=== PATIENT | male | born 1975 | race Caucasian/White ===

== ENCOUNTER 2019-11-25 09:12 | Day surgery (SDC) | payer BC, SELFPAY ==
[2019-11-25 09:49] LABS: #Eosinphils 0.1 thou/uL (0.0-0.7); #Lymphocytes 2.1 thou/uL (1.20-3.40); #Monocytes 1.1 thou/uL (0.11-0.59); #Neutrophils 12.1 thou/uL (1.40-6.50); %Eosinophils 0.4 % (0.0-10.0); %Lymphocytes 13.7 % (21.0-51.0); %Monocytes 7.1 % (0.0-10.0); %Neutrophils 78.8 % (42.0-75.0); Hemoglobin 15.2 g/dL (14.0-18.0); Mean Corpuscular HGB CONC 32.9 g/dL (32.0-36.0); Mean Corpuscular Hemoglobin 27.7 pg (27.0-31.0); Mean Corpuscular Volume 84.3 fL (78.0-98.0); Mean Platelet Volume 8.1 fL (7.4-10.4); Platelet Count 222 thou/uL (130-400); RBC Distribution Width 11.4 % (11.5-14.5); Red Blood Cell (RBC) Count 5.49 mill/uL (4.70-6.10); White Blood Cell (WBC) Count 15.4 thou/uL (4.8-10.8)
[2019-11-25 10:10] LABS: ALT (SGPT) 47 U/L (8-55); AST (SGOT) 23 U/L (5-34); Albumin 4.6 g/dL (3.5-5.0); Alkaline Phosphatase 63 U/L (40-110); Anion Gap 13 mmol/L (10-20); BUN (Urea Nitrogen) 11 mg/dL (8.9-20.6); Bilirubin, Total 1.1 mg/dL (0.2-1.2); Calc. Creatinine Clearance 0 mL/min (70-130); Calcium 9.7 mg/dL (7.8-10.44); Carbon Dioxide 29 mmol/L (22-29); Chloride 103 mmol/L (98-107); Estimated GFR-MDRD 77; Globulin 3.2 g/dL (2.4-3.5); Glucose 110 mg/dL (70-105); Lipase 11 U/L (8-78); Potassium 4.4 mmol/L (3.5-5.1); Protein, Total 7.8 g/dL (6.0-8.3); Sodium 141 mmol/L (136-145)
[2019-11-25] MEDS ORDERED: Rocuronium Bromide 10 MG/ML (10ML VIAL) ONE (10:14)
[2019-11-25] MEDS ORDERED: PROPOFOL 200 MG/20 ML VIAL ONE (10:14)
[2019-11-25] MEDS ORDERED: Lidocaine 1% PF 5 ML VIAL ONE (10:14)
[2019-11-25] MEDS ORDERED: ePHEDrine/0.9% NaCl/PF SYRINGE 50 mg/10 ml ONE (10:14)
[2019-11-25] MEDS ORDERED: Glycopyrrolate 0.2 MG/ML 5 ML SYRINGE ONE (10:14)
[2019-11-25 10:29] LABS: Bilirubin Negative (Negative); Blood, Urine Negative (Negative); Clarity Clear (Clear); Glucose, Urine (Dipstick) Normal (Negative); Leukocyte Negative Leu/uL (Negative); Nitrite Negative (Negative); Protein, Urine (Dipstick) 10 mg/dL (Neg-Trace); Urobilinogen Normal mg/dL (Less than 2)
--- NOTE | 2019-11-25 10:30 | CT ---
CT ABDOMEN AND PELVIS WITH IV CONTRAST 11/25/2019 CLINICAL INFORMATION: Right lower quadrant abdominal pain. COMPARISON: None. Technique: Multiple contiguous axial CT images are obtained through the abdomen and pelvis with IV contrast. Cor onal reformatted images are provided. FINDINGS: Lower Chest: within normal limits. Vessels: Abdominal aorta is normal in caliber without evidence of an aortic dissection. Abdomen: Portal vein:Patent Gallbladder: Within normal limits for CT imaging. Liver: within normal limits. Spleen: within normal limits. Pancreas: within normal limits. Adrenals: within normal limits. Kidneys: within normal limits. Bowel: Normal caliber. Appendix: Mildly dilated measuring 10 mm with mild enhancement of the parekh of the appendix. There is periappendiceal inflammatory changes and stranding present. No periappendiceal fluid collection is seen to suggest an abscess. No free intraperitoneal gas is identified. Peritoneum: No ascites or free air; no fluid collection. Mesentery and Retroperitoneum: No enlarged mesenteric or retroperitoneal lymph nodes. Abdominal Wall: Small fat-containing umbilical hernia. Pelvis: Reproductive Organs: No pelvic masses. Pelvis within normal limits. Bladder: Decompressed but grossly normal in appearance. Bones: Degenerative changes in thoracic as well as lumbar spine with suggestion of limbus vertebra in volving the L4 vertebral body. IMPRESSION: 1. Acute appendicitis. 2. Above findings discussed with Lizet, nurse in charge of the patient's care in the emergency dep artment, on 11/25/2019 at 1027 hours.
--- NOTE | 2019-11-25 11:31 | HP ---
HISTORY OF PRESENT ILLNESS: Mr. Espinal is a 44-year-old man, who presented to emergency department this morning with complaint of insidious onset right lower quadrant abdominal pain, which started close to midnight. Pain was described as crampy, 10/10 in the right lower quadrant without any radiation. Pain is associated with some chills, but no fever. He denies any nausea or vomiting. He denies any change in his bowel habits. PAST MEDICAL HISTORY: Pertinent for chronic anxiety. PAST SURGICAL HISTORY: Pertinent for closed reduction of forearm fracture. SOCIAL HISTORY: He is , lives at home with his . He is employed, doing manual labor at a job place. He denies any cigarette smoking, ethanol, or illicit drug abuse. PREHOSPITAL MEDICATIONS: Includes some anti-anxiety medication, which specifically he does not recall. ALLERGIES: THE PATIENT DENIES ANY KNOWN DRUG ALLERGIES. REVIEW OF SYSTEMS: Ten-point review of systems is essentially unremarkable except as stated in past medical history and chief complaint. PHYSICAL EXAMINATION: GENERAL: This reveals a 44-year-old normally developed man, who is otherwise coherent, interactive, and appears stated age. The patient is alert and oriented x3, appears to be in no acute distress at time of my evaluation. VITAL SIGNS: Include blood pressure 133/80, pulse is 81, respiratory rate is 18, temperature is 99.8 degrees Fahrenheit, and oxygen saturation is 96% on room air. HEENT: Reveals normocephalic and atraumatic. The pupils are equal, round, reactive to light and accommodation. Extraocular muscles are intact bilaterally. No scleral icterus is present. Oral mucosa is pink and moist. No lesions are noted. HEART: Reveals regular rate and rhythm. No murmurs or gallops auscultated. LUNGS: Clear to auscultation bilaterally. Breathing, regular and nonlabored. ABDOMEN: Soft with right lower quadrant tenderness to palpation. He has a positive Rovsing sign. Liver and spleen nonpalpable below costal margin. EXTREMITIES: Reveal 2+ radial and pedal pulses bilaterally. No ankle edema is present. NEUROLOGIC: Reveals no focal deficits present. LABORATORY FINDINGS: Includes a CBC with 15,400 white blood cells, hemoglobin and hematocrit 15.2 and 46.3 respectively, and platelet count is 222,000. Metabolic profile; sodium 141, potassium is 4.4, chloride is 103, bicarb 29, BUN 11, creatinine is 1.06, glucose 110, total bilirubin is 1.1, AST and ALT are 23 and 47 respectively. Serum lipase is normal at 11. A personally reviewed CT scan of the abdomen and pelvis, which is remarkable for dilated appendix with periappendiceal fat stranding. IMPRESSION: Acute appendicitis. RECOMMENDATIONS: Laparoscopic appendectomy. The above findings and recommendations have been discussed with the patient and family at bedside. I have informed him of the risks and benefits of the proposed surgery to include, but not limited to bleeding, infection, injury to bowel or surrounding structures. The patient indicates understanding information given. I have answered his questions. The patient is going to consent for this admission and surgical intervention. Job ID: [id number]
[2019-11-25] MEDS ORDERED: Bupivacaine PF 0.5% 30 ML VIAL ONE (12:56)
[2019-11-25] MEDS ORDERED: Lidocaine 1% w/Epinephrine 1:100K 20 ML VIAL ONE (12:56)
[2019-11-25] MEDS ORDERED: Fentanyl 250 MCG/5 ML VIAL ONE (13:03)
[2019-11-25] MEDS ORDERED: Midazolam HCl 2 mg/2 ml Vial ONE (13:03)
[2019-11-25] MEDS ORDERED: Piperacillin/Tazobactam 3.375 GM VIAL ONE (13:21)
[2019-11-25] MEDS ORDERED: Sodium Chloride 0.9% 100 ML ONE (13:22)
[2019-11-25] MEDS ORDERED: Iopamidol-370 76% 500 ML 1 ML ONE (13:27)
--- NOTE | 2019-11-25 15:18 | OP ---
DATE OF PROCEDURE: 11/25/2019 PREOPERATIVE DIAGNOSIS: Acute appendicitis. POSTOPERATIVE DIAGNOSIS: Acute appendicitis. OPERATION PERFORMED: Laparoscopic appendectomy. ANESTHESIA: General endotracheal. ESTIMATED BLOOD LOSS: 10 mL. FLUIDS GIVEN: 1000 mL crystalloids. COUNTS: Sponge and instrument counts were verified as correct x2. COMPLICATIONS: None apparent at the time of operation. INDICATIONS FOR OPERATION: This is a 44-year-old man, who presented with insidious onset of periumbilical abdominal pain, which settled in the right lower quadrant. Clinical radiographic examination was consistent with acute appendicitis, for which the patient was brought to the operating room for appendectomy. Findings are consistent with dilated suppurative retrocecal appendix with no evidence of perforation. DESCRIPTION OF PROCEDURE: Informed consent was obtained from the patient, who was brought to the operating room and placed in supine position. Following general anesthesia, abdomen was sterilely prepped and draped in usual fashion. The skin below the umbilicus was infiltrated with 0.25% Marcaine with epinephrine. A small curvilinear infraumbilical incision was made using an 11 scalpel. Umbilical stalk grasped with Deng and elevated. Veress needle was inserted through the incision, placed in the peritoneal cavity through which the abdomen was insufflated with 3 L of CO2 gas. Intraabdominal pressure noted at 1 mmHg. Following abdominal insufflation, the Veress needle was removed and a 5 mm trocar introduced using a Visiport. Laparoscopy confirmed proper placement of the port, no injuries to underlying structures. Additional laparoscopy reveals right lower quadrant partially obscured by omental adhesions. Under direct laparoscopy, two 5 mm suprapubic and left lower quadrant ports were placed after the overlying skin infiltrated with 0.25% Marcaine with epinephrine and appropriate incision was made. The patient was placed in a Trendelenburg position, rotated to his left. I introduced a Prestige grasper through the left lower quadrant port using this to bluntly take down omental adhesions to expose a dilated suppurative retrocecal appendix. The appendix was then grasped with the Endo Cinda forceps through the suprapubic port site and the appendix was elevated. Using LigaSure device, the mesoappendix was sterilely divided down to the base with good hemostasis. Appendix itself was divided at the appendiceal-cecal junction between endo loop. The specimen was passed off the operative field using EndoCatch. Operative site was inspected for good hemostasis. The distal ileum was run from the ileocecal junction, down to proximal 2 feet, finding no Meckel's diverticulum. Laparoscopy was terminated. The abdomen was desufflated. All ports and instruments removed and accounted for. Skin incision was closed using 4-0 Monocryl suture in subcuticular fashion. The patient tolerated the operation without any apparent complication and was returned to recovery room in satisfactory condition. Job ID: [id number]
[2019-11-25] MEDS ORDERED: HYDROcodone/Acetaminophen 5/325 mg Tablet ONE ×2 (15:41→16:03)
== END 2019-11-25 17:05 | disposition home or self-care (01) ==
LOC: ERS 09:12 → SDC/OP 12:53
PROVIDERS: ATTEND Surgery
PROC: 0DTJ4ZZ Resection of Appendix, Percutaneous Endoscopic Approach (ICD-10-PCS; principal; 2019-11-25)
DX: K35.80 Unspecified acute appendicitis (principal); F41.9 Anxiety disorder, unspecified
CPT/HCPCS: 36415; 74177; 80053; 81003; 83690; 85025; 88304; 93005; J2001; J2250; J2543; J2704; J3010; J3490; Q9967; S0020

== ENCOUNTER 2021-06-19 08:09 | Emergency (ER) | payer BC | END 2021-06-19 09:09 | disposition home or self-care (01) | LOC: ERS 08:09 | DX: U07.1 COVID-19 (principal); J12.82 Pneumonia due to coronavirus disease 2019; R04.2 Hemoptysis; Z79.899 Other long term (current) drug therapy | CPT/HCPCS: 71045 ==